=== PATIENT | female | born 1985 | race Caucasian/White ===

== ENCOUNTER → 2020-09-10 | Outpatient (CLI) | payer BC ==
[~2020-09-10] MED LIST: GADOTERATE 7.5 MMOL/15ML VIAL. IVP ONE
--- NOTE | 2020-09-10 16:12 | KCIC ---
EXAM: Brain MRI with and without contrast. HISTORY: Migraine. Vertigo. TECHNIQUE: Multiplanar, multisequence magnetic resonance imaging of the brain was performed prior to and following the administration of intravenous contrast. COMPARISON: None. FINDINGS: There is no restricted diffusion to suggest acute or subacute infarction. There is no susce ptibility effect to suggest hemorrhage. There is no mass effect or midline shift. There is no hydroce phalus. There is no suspicious white matter lesion. The orbits are unremarkable. There is mild left e thmoid sinus predominant paranasal sinus because of thickening. There is a small amount of fluid the mastoid air cells. There are normal flow voids within the cerebral vessels. There is no suspicious ca lvarial lesion. There is no suspicious enhancing lesion. IMPRESSION: No acute intracranial finding. Electronically signed by: Estee Earl MD (09/10/2020 4:09 PM) [id number]
== END ==
LOC: KCIC MRI 15:13
PROVIDERS: ATTEND Nurse Practitioner Family
DX: G43.109 Migraine with aura, not intractable, without status migrainosus (principal); R42 Dizziness and giddiness; R55 Syncope and collapse
CPT/HCPCS: 70553; A9575